=== PATIENT | female | born 1965 | race Caucasian/White ===

== ENCOUNTER 2019-01-05 10:07 | Outpatient (CLI) | payer BC ==
--- NOTE | 2019-01-05 11:02 | RAD ---
LEFT KNEE 3 VIEWS: HISTORY: Knee pain that wakes the patient up in the middle of the night. FINDINGS: There are no signs of fracture or dislocation or joint effusion. There may be minimal medial compart ment narrowing. IMPRESSION: Suggestion of some minimal medial compartment narrowing. Otherwise, unremarkable exam. POS: [facility]
--- NOTE | 2019-01-05 11:03 | RAD ---
RIGHT KNEE 3 VIEWS: HISTORY: Knee pain. FINDINGS: There is no significant arthritic change present. There is no fracture or joint effusion. IMPRESSION: Essentially unremarkable knee. POS: [facility]
== END 2019-01-05 10:08 | disposition home or self-care (01) ==
LOC: BICRAD 10:07
PROVIDERS: ATTEND Internal Medicine
DX: M25.562 Pain in left knee (principal); M25.561 Pain in right knee

== ENCOUNTER 2019-03-17 09:54 | Outpatient (CLI) | payer BC ==
--- NOTE | 2019-03-17 10:12 | RAD ---
EXAM: XR Abdomen 1 View/KUB PROVIDED CLINICAL HISTORY: Chronic diarrhea. Possible retained capsule. COMPARISON: None FINDINGS: The upper abdomen is not imaged. Bowel gas pattern is overall nonspecific with small to moderate amou nt of retained fecal material seen in the colon. No radiopaque foreign body is seen. Calcifications overlie the pelvis probably related to phleboliths. No definite suspicious calcifications are seen. O sseous structures are intact. IMPRESSION: 1. Small to moderate amount of retained fecal material, but otherwise nonspecific bowel gas pattern. 2. No radiopaque foreign body visualized. The most upper abdomen is excluded from view.
== END 2019-03-17 09:55 | disposition home or self-care (01) ==
LOC: BICRAD 09:54
PROVIDERS: ATTEND Internal Medicine
DX: K52.9 Noninfective gastroenteritis and colitis, unspecified (principal); K59.00 Constipation, unspecified
CPT/HCPCS: 74018

== ENCOUNTER 2019-03-18 12:01 | Outpatient (CLI) | payer BC ==
--- NOTE | 2019-03-18 13:46 | MRI ---
Pre and postcontrast enhanced MRI images brain. HISTORY: R20.2 paresthesia of skin. Multiplanar multisequence pre and postcontrast enhanced MRI images brain obtained. Images demonstrate the brain to be unremarkable. No evidence of intracranial masses, hemorrhages or s trokes seen. Ventricles are of normal size. IMPRESSION: Unremarkable pre and postcontrast enhanced MRI images of the brain.
== END 2019-03-18 12:02 | disposition home or self-care (01) ==
LOC: BICMRI 12:01
PROVIDERS: ATTEND Psychiatry & Neurology Neurology
DX: R20.2 Paresthesia of skin (principal)
CPT/HCPCS: 70553

== ENCOUNTER 2019-11-24 10:07 | Outpatient (CLI) | payer BC ==
--- NOTE | 2019-11-24 10:28 | RAD ---
EXAM: 2 views of the lumbosacral spine HISTORY: Low back pain COMPARISON: None FINDINGS: 2 views of the lumbosacral spine shows normal height and alignment of the vertebral bodies and intervertebral discs without fracture or subluxation. Mild posterior facet arthrosis is seen in the lower lumbosacral spine. The sacroiliac joints are unremarkable. IMPRESSION: Mild degenerative changes of the lumbar spine
--- NOTE | 2019-11-24 10:29 | RAD ---
EXAM: Thoracic spine: 3 views INDICATIONS: Back pain. COMPARISON: None. FINDINGS: Thoracic vertebra maintain normal height and alignment. Mild degenerative osteophytes. Disc spaces are preserved. No lytic or blastic process. No significant curvature. IMPRESSION: Unremarkable thoracic spine
== END 2019-11-24 10:08 | disposition home or self-care (01) ==
LOC: BICRAD 10:07
PROVIDERS: ATTEND Internal Medicine
DX: M54.5 Low back pain (principal); M54.6 Pain in thoracic spine; M47.816 Spondylosis without myelopathy or radiculopathy, lumbar region
CPT/HCPCS: 36415; 72072; 72100; 80053; 80061; 85025; 87624; 88142; G0123

== ENCOUNTER 2021-04-28 17:30 | Outpatient (CLI) | payer BC | END 2021-04-28 17:31 | disposition home or self-care (01) | LOC: SLEEPLAB 17:30 | PROVIDERS: ATTEND Internal Medicine | DX: G47.33 Obstructive sleep apnea (adult) (pediatric) (principal); R53.83 Other fatigue; R09.89 Other specified symptoms and signs involving the circulatory and respiratory systems; R06.83 Snoring; G47.63 Sleep related bruxism; G47.00 Insomnia, unspecified | CPT/HCPCS: 95806 ==

== ENCOUNTER 2021-05-26 09:19 | Outpatient (CLI) | payer BC | END 2021-05-26 09:20 | disposition home or self-care (01) | LOC: BICRAD 09:19 | PROVIDERS: ATTEND Internal Medicine | DX: M54.42 Lumbago with sciatica, left side (principal); M41.9 Scoliosis, unspecified; M43.9 Deforming dorsopathy, unspecified | CPT/HCPCS: 72081; 72100 ==